=== PATIENT | female | born 1975 | race Asian ===

== ENCOUNTER 2024-01-04 23:16 | Emergency (ER) | payer MEDICAID ==
[~2024-01-04] VITALS: Ht 165.1 cm; Wt 148.0 kg
[2024-01-04 23:29] VITALS: TEMP 98.7; O2SAT 99
[2024-01-05] MEDS: ACETAMINOPHEN 325MG TABLET PO ONE (01:55)
[2024-01-05] MEDS ORDERED: TOPUD MT (02:09)
[2024-01-05 02:29] VITALS: BP 144/87; PULSE 85; RESP 16
== END 2024-01-05 02:38 | disposition home or self-care (01) ==
LOC: ER 23:16
DX: S90.121A Contusion of right lesser toe(s) without damage to nail, initial encounter (principal); I10 Essential (primary) hypertension; E11.9 Type 2 diabetes mellitus without complications; Z87.442 Personal history of urinary calculi; Z90.89 Acquired absence of other organs; Z90.49 Acquired absence of other specified parts of digestive tract; Z88.0 Allergy status to penicillin; Z88.8 Allergy status to other drugs, medicaments and biological substances; W18.39XA Other fall on same level, initial encounter; Y93.89 Activity, other specified; Y92.89 Other specified places as the place of occurrence of the external cause; Y99.8 Other external cause status
CPT/HCPCS: 73630; 99283